=== PATIENT | male | born 1980 | race Asian ===

== ENCOUNTER 2018-01-15 09:35 | Outpatient (CLI) | payer BC | END 2018-01-15 22:08 | disposition home or self-care (01) | LOC: LABW 09:35 | DX: M54.5 Low back pain (principal) | CPT/HCPCS: 36415; 81000; 81374; 82150; 82550; 83690; 85651; 86039; 86140; 86592; 86618 ==

== ENCOUNTER 2018-04-17 09:31 | Outpatient (CLI) | payer BC ==
[2018-04-17 10:42] LABS: POTASSIUM 4.2 mmol/L (3.6-5.2)
== END 2018-04-17 22:14 | disposition home or self-care (01) ==
LOC: LABW 09:31
PROVIDERS: Internal Medicine
DX: R73.9 Hyperglycemia, unspecified (principal); M62.82 Rhabdomyolysis
CPT/HCPCS: 36415; 80053; 80061; 81000; 82043; 82550; 82570